=== PATIENT | male | born 1990 | race Caucasian/White ===

== ENCOUNTER 2016-10-10 12:48 | Emergency (ER) | payer MEDICAID, OTHER ==
[~2016-10-10] VITALS: Ht 175.3 cm; Wt 71.1 kg
[2016-10-10 12:59] VITALS: BP 113/100; PULSE 77; RESP 16; TEMP 98.9; O2SAT 100
[2016-10-10] MEDS ORDERED: LIDOCAINE 1%/EPINEPHrine 1:100,000 SOLN 20 ML VIAL INFIL ONE (13:15)
[2016-10-10] MEDS ORDERED: BACT800T5 PO (13:17)
--- NOTE | 2016-10-10 13:17 | PD ---
HPI Chief Complaint: Skin Problem Time Seen by Provider: 12:55 Travel History International Travel<30 days: No Contact w/Intl Traveler<30days: No Traveled to known affect area: No History of Present Illness HPI 26-year-old male presents to the emergency room for evaluation of abscess to his right upper neck region for the past few days. Patient states it started off as a small pimple and he tried to squeeze and it grew in size. He reports minimal pain. Denies fever, chills, nausea, vomiting, and drainage. There is associated body aches. No chronic medical conditions or daily medications. Tetanus is up-to-date. PFSH Past Medical History Anxiety: Yes Depression: Yes Heart Rhythm Problems: Yes (murmur) Cancer: No Diabetes: No Diminished Hearing: Yes Psychiatric: Yes (bipolar disorder) Seizures: No Thyroid Disease: No Ulcer: No Influenza Vaccination: No Past Surgical History Other Surgery: Yes (DOUBLE HERNIA, PYLORIC STENOSIS) Social History Alcohol Use: No (PT DENIES) Tobacco Use: Yes (1 / ppd) Substance Use: Yes (IV Dilaudid, marijuana) Allergies-Medications (Allergen,Severity, Reaction): Coded Allergies: Penicillin (Verified Allergy, Severe, Hives, 07/22/16) Reported Meds & Prescriptions Reported Meds & Active Scripts Active Bactrim DS (Sulfamethoxazole-Trimethoprim) 800-160 Mg Tab 1 Tab PO BID Review of Systems Except as stated in HPI: all other systems reviewed are Neg Physical Exam Narrative GENERAL: Well-nourished, well-developed male in no acute distress. Afebrile. Ambulatory. SKIN: Focused skin assessment warm/dry. There is an indurated area in the right upper neck which measures about 1 cm in diameter. It is fluctuant but there is no pointing or drainage. There is a zone of inflammation around it but no lymphangitis. HEAD: Normocephalic. EYES: No scleral icterus. No injection or drainage. NECK: Supple, trachea midline. No JVD or lymphadenopathy. CARDIOVASCULAR: Regular rate and rhythm without murmurs, gallops, or rubs. RESPIRATORY: Breath sounds equal bilaterally. No accessory muscle use. PSYCHIATRIC: No delusional thought processes. No hallucinations. Data Data Last Documented VS Vital Signs Date Time Temp Pulse Resp B/P Pulse Ox O2 Delivery O2 Flow Rate FiO2 10/10/16 12:59 98.9 77 16 113/100 100 Orders Lidocai-Epi 1%-1:100,000 Inj (Xylocaine- (10/10/16 13:15) MDM Medical Decision Making Medical Screen Exam Complete: Yes Emergency Medical Condition: Yes Medical Record Reviewed: Yes Differential Diagnosis Abscess, folliculitis, acne Narrative Course 26-year-old male presents to the emergency room for evaluation of an abscess to his right upper neck for the past few days. Patient denies spontaneous drainage , systemic signs of infection, lymphangitis. Physical exam reveals a 1-2 cm area of induration without surrounding erythema. Abscess was drained, see procedure for details. Patient discharged with prescription for Bactrim and told to follow-up with a PCP or return for worsening symptoms. He understands and agrees to plan. Procedures Procedure Narrative INCISION AND DRAINAGE OF ABSCESS: The area was prepped and was sterilely draped. A subcutaneous wheal of 1% lidocaine with epinephrine with a total number 2 mL was used to anesthetize the area properly. A number 11 scalpel was used to make a 1 cm incision across the area of the abscess. The abscess was drained, complex loculations were broken down, and irrigated with normal saline. Cultures were obtained. Sterile dressing applied. Diagnosis Primary Impression: Abscess Referrals: Primary Care Physician Patient Instructions: Abscess (ED), General Instructions Additional Instructions: Rest and drink plenty of fluids. Take Bactrim as directed, until gone. Follow up with a primary care physician. Return to emergency room for worsening symptoms, as discussed. Med/Other Pt SpecificInfo: Prescription(s) given Scripts Sulfamethoxazole-Trimethoprim (Bactrim DS)800-160 Mg Tab1 Tab PO BID #20 TAB Ref 0 Prov:Saleem Hernandez MD 10/10/16 Disposition: 01 DISCHARGE HOME Condition: Stable Jahaira Nick Oct 10, 2016 13:17
== END 2016-10-10 13:55 | disposition home or self-care (01) ==
LOC: PHEFT 12:48
DX: L02.11 Cutaneous abscess of neck (principal)
CPT/HCPCS: 10060

== ENCOUNTER 2016-10-13 19:09 | Emergency (ER) | payer MEDICAID, OTHER ==
[~2016-10-13] VITALS: Ht 175.3 cm; Wt 68.0 kg
[~2016-10-13 19:09] MED LIST: BACT800T5 PO
[2016-10-13 19:19] VITALS: BP 139/85; PULSE 83; RESP 18; TEMP 98.3; O2SAT 98
[2016-10-13] MEDS ORDERED: CLIN1CAP6 PO (19:56)
[2016-10-13 19:57] VITALS: BP 139/85; PULSE 83; RESP 18; TEMP 98.3; O2SAT 98
--- NOTE | 2016-10-13 19:57 | PD ---
HPI Chief Complaint: Lump, Cyst, Hernia Time Seen by Provider: 19:51 Travel History International Travel<30 days: No Contact w/Intl Traveler<30days: No Traveled to known affect area: No History of Present Illness HPI HAS RIGHT SIDED LUMP THAT WAS I&D ON OCT 10 AND PLACED ON BACTRIM....RETURNS BECAUSE IS NOT IMPROVING, PER MOTHER APPARENTLY SISTER HAD SIMILAR LUMP AND HAD TO BE SWITCHED TO CLINDAMYCIN FROM BACTRIM. PATIENT STATES THERE IS SOME DRAINAGE FROM IT AND THAT IT HAS WORSENED MINIMALLY BUT THAT HE LEARNED HIS LESSON FROM SEEING HIS SISTERS JAW GET REALLY SWOLLEN. PFSH Past Medical History Anxiety: Yes Depression: Yes Heart Rhythm Problems: Yes (murmur) Cancer: No Diabetes: No Diminished Hearing: Yes Psychiatric: Yes (bipolar disorder) Seizures: No Thyroid Disease: No Ulcer: No ?: Not Past Surgical History Other Surgery: Yes (DOUBLE HERNIA, PYLORIC STENOSIS) Social History Alcohol Use: No (PT DENIES) Tobacco Use: Yes (03/11 ppd) Substance Use: Yes (IV Dilaudid, marijuana) Allergies-Medications (Allergen,Severity, Reaction): Coded Allergies: Penicillin (Verified Allergy, Severe, Hives, 07/22/16) Reported Meds & Prescriptions Reported Meds & Active Scripts Active Bactrim DS (Sulfamethoxazole-Trimethoprim) 800-160 Mg Tab 1 Tab PO BID Review of Systems Except as stated in HPI: all other systems reviewed are Neg Skin: Positive Lumps Physical Exam Narrative GENERAL: SKIN: Warm and dry....AREA AT ANGLE OF JAW ON RIGHT HAS AN ERYTHEMATOUS AREA OF 2.5CM, AND AN OPENED OOZING I&D WITHOUT ANY PACKING HEAD: Atraumatic. Normocephalic. EYES: Pupils equal and round. No scleral icterus. No injection or drainage. ENT: No nasal bleeding or discharge. Mucous membranes pink and moist. NECK: Trachea midline. No JVD. CARDIOVASCULAR: Regular rate and rhythm. RESPIRATORY: No accessory muscle use. Clear to auscultation. Breath sounds equal bilaterally. GASTROINTESTINAL: Abdomen soft, non-tender, nondistended. Hepatic and splenic margins not palpable. MUSCULOSKELETAL: Extremities without clubbing, cyanosis, or edema. No obvious deformities. NEUROLOGICAL: Awake and alert. No obvious cranial nerve deficits. Motor grossly within normal limits. Five out of 5 muscle strength in the arms and legs. Normal speech. PSYCHIATRIC: Appropriate mood and affect; insight and judgment normal. Data Data Last Documented VS Vital Signs Date Time Temp Pulse Resp B/P Pulse Ox O2 Delivery O2 Flow Rate FiO2 10/13/16 19:19 98.3 83 18 139/85 98 MDM Medical Decision Making Medical Screen Exam Complete: Yes Emergency Medical Condition: Yes Medical Record Reviewed: Yes Differential Diagnosis SUSPECT MRSA WITH POSSIBLE INSENSITIVITY TO BACTRIM Narrative Course WILL CULTURE AND SEND WELL ADD CLINDAMYCIN IM Diagnosis Primary Impression: Abscess Scripts Clindamycin 300 Mg [id number] Mg PO TID 10 Days Ref 0 Prov:Saleem Hernandez MD 10/13/16 Disposition: DISCHARGE HOME Condition: Stable Saleem Hernandez MD Oct 13, 2016 19:57
[2016-10-13] MEDS ORDERED: CLINDAMYCIN INJ 900 MG in SODIUM CHLORIDE 0.9% INJ 100 ML IV ONE (20:00)
[2016-10-13 21:22] VITALS: BP 145/75; PULSE 86; RESP 18; O2SAT 99
== END 2016-10-13 21:25 | disposition home or self-care (01) ==
LOC: PHED 19:09
DX: L02.11 Cutaneous abscess of neck (principal); B95.62 Methicillin resistant Staphylococcus aureus infection as the cause of diseases classified elsewhere; F17.210 Nicotine dependence, cigarettes, uncomplicated; F12.90 Cannabis use, unspecified, uncomplicated; F15.90 Other stimulant use, unspecified, uncomplicated; Z88.0 Allergy status to penicillin
CPT/HCPCS: 86403; 87070; 87186; 87205; 99283

== ENCOUNTER 2017-02-08 11:10 | Emergency (ER) | payer OTHER ==
[~2017-02-08 11:10] MED LIST changes: +CLIN300C5 PO
[2017-02-08 11:23] VITALS: BP 163/103; PULSE 80; RESP 20; TEMP 98.2; O2SAT 100
[2017-02-08] MEDS ORDERED: CLIN150C14 PO (12:27)
[2017-02-08] MEDS ORDERED: IBUP-232 PO (12:27)
--- NOTE | 2017-02-08 12:27 | PD ---
HPI Chief Complaint: ENT Complaint Time Seen by Provider: 12:13 Travel History International Travel<30 days: No Contact w/Intl Traveler<30days: No Traveled to known affect area: No History of Present Illness HPI 26-year-old male complains of left-sided facial pain and swelling. Patient states that the symptoms started yesterday. Patient states the pain is severe sharp pain localized left side of face and behind the left eye. Patient denies any pain radiation. Patient denies any any visual change. Patient states that he vomited this morning. Patient denies any fever chills. Patient denies any neck pain. Patient has history of illicit drug abuse in the past but not recently. Patient denies any recent facial injury. On a scale of 1-10 the pain is a 10. PFSH Past Medical History Anxiety: Yes Depression: Yes Heart Rhythm Problems: Yes (murmur) Cancer: No Diabetes: No Diminished Hearing: Yes Psychiatric: Yes (bipolar disorder) Immunizations Current: Yes Seizures: No Thyroid Disease: No Ulcer: No Influenza Vaccination: No Past Surgical History Ear Surgery: Yes Other Surgery: Yes (DOUBLE HERNIA, PYLORIC STENOSIS) Social History Alcohol Use: Yes (OCC) Tobacco Use: Yes (03/11 ppd) Substance Use: Yes (IV Dilaudid, marijuana) Allergies-Medications (Allergen,Severity, Reaction): Coded Allergies: penicillin G (Unverified Allergy, Severe, Hives, 02/08/17) *MDRO Multi-Drug Resistant Organism (Verified Adverse Reaction, Unknown, 02/08/17) MRSA (face)-10/13/16 Reported Meds & Prescriptions Reported Meds & Active Scripts Active Review of Systems General / Constitutional: No: Fever Eyes: No: Visual changes HENT: No: Headaches Cardiovascular: No: Chest Pain or Discomfort Respiratory: No: Shortness of Breath Gastrointestinal: No: Abdominal Pain Genitourinary: No: Dysuria Musculoskeletal: No: Pain Skin: No Rash Neurologic: No: Weakness Psychiatric: No: Depression Endocrine: No: Polydipsia Hematologic/Lymphatic: No: Easy Bruising Physical Exam Narrative GENERAL: Well-nourished, well-developed patient. SKIN: Focused skin assessment warm/dry. HEAD: Normocephalic. EYES: No scleral icterus. No injection or drainage. Pupils 2 mm equal reactive. Extraocular muscles intact. NECK: Supple, trachea midline. No JVD or lymphadenopathy. CARDIOVASCULAR: Regular rate and rhythm without murmurs, gallops, or rubs. RESPIRATORY: Breath sounds equal bilaterally. No accessory muscle use. GASTROINTESTINAL: Abdomen soft, non-tender, nondistended. MUSCULOSKELETAL: No cyanosis, or edema. BACK: Nontender without obvious deformity. No CVA tenderness. Patient had severe dental caries left upper gum with tenderness on palpation the left upper gum. Mild soft tissue swelling left cheek area with tenderness on palpation. Data Data Last Documented VS Vital Signs Date Time Temp Pulse Resp B/P (MAP) Pulse Ox O2 Delivery O2 Flow Rate FiO2 02/08/17 11:23 98.2 80 20 163/103 (123) 100 Orders Orders Clindamycin Inj (Cleocin Inj) (02/08/17 12:30) [facility] Medical Decision Making Medical Screen Exam Complete: Yes Emergency Medical Condition: Yes Differential Diagnosis Differential diagnosis including dental abscess, sinusitis, cellulitis. Narrative Course 26-year-old male with left-sided facial pain and swelling. Most likely dental abscess with sinusitis. Clindamycin 600 mg IM. Diagnosis Primary Impression: Dental abscess Additional Impression: Sinusitis Qualified Codes: J01.00 - Acute maxillary sinusitis, unspecified Patient Instructions: General Instructions Additional Instructions: Clindamycin as directed. Follow-up with her dentist. Return if worse. Med/Other Pt SpecificInfo: Prescription(s) given Scripts Ibuprofen (Ibuprofen) 600 Mg Tab 600 MG PO TID for Pain, #60 TAB 0 Refills Prov: Mathew Hernandez MD 02/08/17 Clindamycin (Clindamycin) 150 Mg Cap 2 TAB PO QID for Infection, #80 CAP 0 Refills Prov: Mathew Hernandez MD 02/08/17 Disposition: 01 DISCHARGE HOME Condition: Stable Mathew Hernandez MD Feb 08, 2017 12:27
[2017-02-08] MEDS ORDERED: CLINDAMYCIN PHOS 600 MG/4 ML VIAL IM ONE (12:30)
[2017-02-08 12:41] VITALS: BP 126/79; PULSE 82; RESP 17; O2SAT 99
== END 2017-02-08 12:47 | disposition home or self-care (01) ==
LOC: PHED 11:10
DX: K04.7 Periapical abscess without sinus (principal); J01.00 Acute maxillary sinusitis, unspecified; F17.200 Nicotine dependence, unspecified, uncomplicated
CPT/HCPCS: 96372

== ENCOUNTER 2017-02-17 19:47 | Emergency (ER) | payer OTHER ==
[~2017-02-17] VITALS: Ht 175.3 cm; Wt 68.0 kg
[~2017-02-17 19:47] MED LIST changes: -BACT800T5 PO; +CLIN150C14 PO; -CLIN300C5 PO; +IBUP-232 PO
[2017-02-17 20:00] VITALS: BP 145/93; PULSE 94; RESP 16; TEMP 98.8; O2SAT 100
[2017-02-17] MEDS ORDERED: DOXY100C PO (20:29)
[2017-02-17] MEDS ORDERED: ROBA750T PO (20:29)
[2017-02-17] MEDS ORDERED: IBUP-232 PO (20:29)
--- NOTE | 2017-02-17 20:29 | PD ---
HPI Chief Complaint: Back/ Neck Pain or Injury Time Seen by Provider: 20:18 Travel History International Travel<30 days: No Contact w/Intl Traveler<30days: No Traveled to known affect area: No History of Present Illness HPI 26-year-old male complains of facial pain, bloody nasal discharge, his head and neck pain. Patient was seen in emergency room 9 days ago for dental pain. Patient was given prescription for clindamycin. Patient has been taking clindamycin as directed. Patient started having left sided facial pain and bloody discharge this morning. Patient denies any injury to the facial area. Patient complains of right-sided neck pain since this morning. Patient states that the pain cramping pain localized right-sided neck. Patient denies any pain radiation. Patient states that the pain is worse with movement of the neck. Patient denies any injury to the neck area. Patient denies any fever chills. Patient denies any chest pain or shortness of breath. Patient denies any focal weakness or numbness of extremity. PFSH Past Medical History Anxiety: Yes Depression: Yes Heart Rhythm Problems: Yes (murmur) Cancer: No Diabetes: No Diminished Hearing: Yes Psychiatric: Yes (bipolar disorder) Immunizations Current: Yes Seizures: No Thyroid Disease: No Ulcer: No ?: Not Past Surgical History Ear Surgery: Yes Other Surgery: Yes (DOUBLE HERNIA, PYLORIC STENOSIS) Social History Alcohol Use: Yes (OCC) Tobacco Use: Yes (1 03/11 ppd) Substance Use: Yes (IV Dilaudid, marijuana) Allergies-Medications (Allergen,Severity, Reaction): Coded Allergies: penicillin G (Verified Allergy, Severe, Hives, 02/17/17) *MDRO Multi-Drug Resistant Organism (Verified Adverse Reaction, Unknown, 02/17/17) MRSA (face)-10/13/16 Reported Meds & Prescriptions Reported Meds & Active Scripts Active Ibuprofen 600 Mg Tab 600 Mg PO TID Clindamycin (Clindamycin HCl) 150 Mg Cap 2 Tab PO QID Review of Systems General / Constitutional: No: Fever Eyes: No: Visual changes HENT: Positive: Neck Pain, No: Headaches Cardiovascular: No: Chest Pain or Discomfort Respiratory: No: Shortness of Breath Gastrointestinal: No: Abdominal Pain Genitourinary: No: Dysuria Musculoskeletal: No: Pain Skin: No Rash Neurologic: No: Weakness Psychiatric: No: Depression Endocrine: No: Polydipsia Hematologic/Lymphatic: No: Easy Bruising Physical Exam Narrative GENERAL: Well-nourished, well-developed patient. SKIN: Focused skin assessment warm/dry. HEAD: Normocephalic. EYES: No scleral icterus. No injection or drainage. Patient has mild to moderate tenderness on palpation left maxillary sinus area. NECK: Supple, trachea midline. No JVD or lymphadenopathy. Patient has mild tenderness on palpation right-sided paraspinal areas cervical spine along with the right shoulder pad area. No shoulder joint tenderness. No midline tenderness of the cervical spine. No meningismus. CARDIOVASCULAR: Regular rate and rhythm without murmurs, gallops, or rubs. RESPIRATORY: Breath sounds equal bilaterally. No accessory muscle use. GASTROINTESTINAL: Abdomen soft, non-tender, nondistended. MUSCULOSKELETAL: No cyanosis, or edema. BACK: Nontender without obvious deformity. No CVA tenderness. Data Data Last Documented VS Vital Signs Date Time Temp Pulse Resp B/P (MAP) Pulse Ox O2 Delivery O2 Flow Rate FiO2 02/17/17 20:00 98.8 94 16 145/93 (110) 100 MDM Medical Decision Making Medical Screen Exam Complete: Yes Emergency Medical Condition: Yes Differential Diagnosis Differential diagnosis including sinusitis, URI, muscle spasm. Narrative Course 26-year-old male with right-sided facial pain, bloody nasal discharge, right- sided neck pain. Patient is on clindamycin for dental pain. Diagnosis Primary Impression: Sinusitis Qualified Codes: J01.00 - Acute maxillary sinusitis, unspecified Additional Impression: Muscle spasms of neck Patient Instructions: General Instructions Med/Other Pt SpecificInfo: Prescription(s) given Scripts Doxycycline Hyclate (Doxycycline Hyclate) 100 Mg Cap 100 MG PO BID for Infection, #20 CAP 0 Refills Prov: Mathew Hernandez MD 02/17/17 Methocarbamol (Robaxin) 750 Mg Tab 750 MG PO QID for Muscle Spasm, #40 TAB 0 Refills Prov: Mathew Hernandez MD 02/17/17 Ibuprofen (Ibuprofen) 600 Mg Tab 600 MG PO TID for Pain, #60 TAB 0 Refills Prov: Mathew Hernandez MD 02/17/17 Disposition: 01 DISCHARGE HOME Condition: Stable Mathew Hernandez MD Feb 17, 2017 20:29
== END 2017-02-17 20:42 | disposition home or self-care (01) ==
LOC: PHEFT 19:47
DX: J01.00 Acute maxillary sinusitis, unspecified (principal); M62.838 Other muscle spasm; M54.2 Cervicalgia; F17.200 Nicotine dependence, unspecified, uncomplicated
CPT/HCPCS: 99284

== ENCOUNTER 2017-03-08 16:28 | Emergency (ER) | payer OTHER ==
[~2017-03-08] VITALS: Ht 175.3 cm; Wt 63.0 kg
[~2017-03-08 16:28] MED LIST changes: +DOXY100C PO; +ROBA750T PO
[2017-03-08 16:31] VITALS: BP 154/83; PULSE 67; RESP 16; TEMP 97.7; O2SAT 100
[2017-03-08] MEDS ORDERED: TETANUS/DIPHTHERIA TOXOID ADULT 0.5 ML VIAL IM ONE (17:00)
--- NOTE | 2017-03-08 17:09 | PD ---
HPI Chief Complaint: Laceration/Skin Injury Time Seen by Provider: 17:26 Travel History International Travel<30 days: No Contact w/Intl Traveler<30days: No Traveled to known affect area: No History of Present Illness HPI 26-year-old male presents to emergency department with an avulsion to the distal aspects of middle finger. 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 States he went to urgent care and they recommended he come to the emergency department as he may require a hand specialist. States they did not perform an x-ray. States his pain is moderate and stinging. He does not know when his last tetanus vaccination was. Patient states he has normal sensation to the surrounding tissue. Has full range of motion of his finger. Patient is right-handed [facility] Past Medical History Anxiety: Yes Depression: Yes Heart Rhythm Problems: Yes (murmur) Diabetes: No Diminished Hearing: Yes Hypertension: Yes Psychiatric: Yes (bipolar disorder) Immunizations Current: Yes Seizures: No Tetanus Vaccination: > 5 Years Influenza Vaccination: No Past Surgical History Ear Surgery: Yes Other Surgery: Yes (DOUBLE HERNIA, PYLORIC STENOSIS) Social History Alcohol Use: Yes (OCC) Tobacco Use: Yes (1 ppd) Substance Use: Yes (IV Dilaudid, marijuana) Allergies-Medications (Allergen,Severity, Reaction): Coded Allergies: penicillin G (Verified Allergy, Severe, Hives, 03/08/17) *MDRO Multi-Drug Resistant Organism (Verified Adverse Reaction, Unknown, 02/17/17) MRSA (face)-10/13/16 Reported Meds & Prescriptions Reported Meds & Active Scripts Active Review of Systems Except as stated in HPI: all other systems reviewed are Neg Physical Exam Narrative GENERAL: Well-nourished, well-developed patient. SKIN: Focused skin assessment warm/dry. HEAD: Normocephalic. EYES: No scleral icterus. No injection or drainage. NECK: Supple, trachea midline. No JVD or lymphadenopathy. CARDIOVASCULAR: Regular rate and rhythm without murmurs, gallops, or rubs. RESPIRATORY: Breath sounds equal bilaterally. No accessory muscle use. MUSCULOSKELETAL: No cyanosis, or edema. Right middle finger- 1 cm oval shaped avulsion to the distal lateral finger pad not including the nail or deep structures. Bleeding controlled, no significant edema. BACK: Nontender without obvious deformity. No CVA tenderness. Data Data Last Documented VS Vital Signs Date Time Temp Pulse Resp B/P (MAP) Pulse Ox O2 Delivery O2 Flow Rate FiO2 03/08/17 16:31 97.7 67 16 154/83 (106) 100 Orders Orders Tetanus/Diphtheria Tox Adult (Tetanus/Di (03/08/17 17:00) Lidocaine Pf 1% Inj (Xylocaine-Mpf 1% In (03/08/17 17:30) Finger ([id number]) (03/08/17 ) Ed Discharge Order (03/08/17 18:20) MDM Medical Decision Making Medical Screen Exam Complete: Yes Emergency Medical Condition: Yes Differential Diagnosis Right middle finger avulsion, laceration, abrasion Narrative Course 26-year-old male presents to emergency department with an avulsion to the distal aspects of middle finger. 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 States he went to urgent care and they recommended he come to the emergency department as he may require a hand specialist. States they did not perform an x-ray. States his pain is moderate and stinging. He does not know when his last tetanus vaccination was. Patient states he has normal sensation to the surrounding tissue. Has full range of motion of his finger. Patient is right-handed Vital signs stable. Physical exam is consistent with an avulsion to the distal aspect of finger. There is no evidence of tendon or ligament involvement. No evidence of nail involvement. Bleeding is well-controlled. X-ray obtained to rule out possibility of bone involvement. Area was cleaned thoroughly with iodine and irrigated with saline. Advised on wound care. Advised to watch for signs of infection. Advised follow-up with primary care physician for wound checks. Return to emergency room for worsening or persistent symptoms. Procedures Procedure Narrative Digital block performed to reduce patient's symptoms, MCP approach. 1% lidocaine without epinephrine used to anesthetize the finger. Diagnosis Primary Impression: Avulsion, finger tip Qualified Codes: S61.209A - Unspecified open wound of unspecified finger without damage to nail, initial encounter Referrals: Primary Care Physician Departure Forms: Tests/Procedures, Work Release Enter return to work date: Mar 10, 2017 Additional Instructions: Follow-up department care physician within 2-3 days. Consider follow-up with a hand specialist if no improvement in a couple of days. Keep area clean and dry for 24 hours You may use [id number] triple antibiotic ointments for your injury after 24-48 hours Change dressings daily. If bleeding starts again, applied pressure and elevate the area. If he developed increased redness, swelling, or pain return to the emergency department. Disposition: 01 DISCHARGE HOME Condition: Stable Eleni Miranda Mar 08, 2017 17:09
[2017-03-08] MEDS ORDERED: LIDOCAINE HCL 1% 20 ML VIAL INFIL ONE (17:15)
[2017-03-08] MEDS ORDERED: LIDOCAINE HCL 1% PF 30 ML VIAL INFIL ONE (17:30)
--- NOTE | 2017-03-08 18:14 | RADRPT ---
EXAM DATE/TIME: 03/08/2017 17:47 [facility] COMPARISON: No previous studies available for comparison. 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 SURGICAL HISTORY : None. ENCOUNTER: Initial ACUITY: 1 day PAIN SCORE: 5/10 LOCATION: Right 3rd finger tip FINDINGS: No definite fractures, or dislocations are identified. No definite lytic or sclerotic lesion is seen . The joint spaces are well maintained. There is no evidence for a radiopaque foreign body for techn ique. CONCLUSION: Unremarkable study. Lydia Alvarado MD on March 08, 2017 at 18:11 Board Certified Radiologist. This report was verified electronically.
== END 2017-03-08 18:35 | disposition home or self-care (01) ==
LOC: PHEFT 16:28
DX: S61.312A Laceration without foreign body of right middle finger with damage to nail, initial encounter (principal); F41.9 Anxiety disorder, unspecified; I10 Essential (primary) hypertension; F31.9 Bipolar disorder, unspecified; F17.200 Nicotine dependence, unspecified, uncomplicated; W31.82XA Contact with other commercial machinery, initial encounter; Z88.0 Allergy status to penicillin; Z23 Encounter for immunization
CPT/HCPCS: 64450; 73140; 90471; 90714

== ENCOUNTER 2017-05-11 15:14 | Emergency (ER) | payer OTHER ==
[~2017-05-11] VITALS: Ht 172.7 cm; Wt 60.0 kg
[2017-05-11 16:52] VITALS: BP 167/94; PULSE 75; RESP 18; TEMP 98.7; O2SAT 99
[2017-05-11 17:05] VITALS: BP_SYST 134; BP_SYST 159; BP_DIAS 57; PULSE 88; RESP 16; TEMP 98; O2SAT 99
[2017-05-11 18:29] LABS: AUTOMATED NEUTROPHIL # 6.7 TH/MM3 (1.8-7.7); BASOPHIL % 0.4 % (0.0-2.0); EOSINOPHIL # 0.4 TH/MM3 (0-0.4); HEMOGLOBIN 16.3 GM/DL (13.0-17.0); LYMPH % 15.5 % (9.0-44.0); LYMPHOCYTE # 1.4 TH/MM3 (1.0-4.8); MEAN CELL VOLUME 84.7 FL (80.0-100.0); MEAN CORPUSCULAR HEMOGLOBIN 30.1 PG (27.0-34.0); MEAN CORPUSCULAR HGB CONC 35.5 % (32.0-36.0); MEAN PLATELET VOLUME 7.7 FL (7.0-11.0); MONO % 5.5 % (0.0-8.0); MONOCYTE # 0.5 TH/MM3 (0-0.9); NEUT % 74.6 % (16.0-70.0); PLATELET COUNT 229 TH/MM3 (150-450); RED BLOOD COUNT 5.43 MIL/MM3 (4.50-5.90); RED CELL DISTRIBUTION WIDTH 12.9 % (11.6-17.2); WHITE BLOOD COUNT 8.9 TH/MM3 (4.0-11.0)
[2017-05-11 18:38] LABS: ALT (GPT) 19 U/L (12-78); AST (GOT) 17 U/L (15-37); BICARBONATE 28.3 MEQ/L (21.0-32.0); BLOOD UREA NITROGEN 8 MG/DL (7-18); CALCIUM 9.1 MG/DL (8.5-10.1); CHLORIDE 106 MEQ/L (98-107); CREATININE 0.85 MG/DL (0.60-1.30); GLOMERULAR FILTRATION RATE 110 ML/MIN (>89); GLUCOSE,RANDOM 127 MG/DL (74-106); SODIUM (NA) 141 MEQ/L (136-145)
[2017-05-11 18:41] LABS: ALKALINE PHOSPHATASE 85 U/L (45-117); TOTAL BILIRUBIN ADULT 0.3 MG/DL (0.2-1.0); TOTAL PROTEIN 7.5 GM/DL (6.4-8.2)
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
[2017-05-11] MEDS ORDERED: diphenhydrAMINE HCL 50 MG CAP PO ONE (20:30)
[2017-05-11] MEDS ORDERED: IBUPROFEN 600 MG TAB PO ONE (20:30)
[2017-05-11 21:53] VITALS: BP 135/77; PULSE 67; RESP 18; TEMP 98.2; O2SAT 97
[2017-05-12 02:17] VITALS: BP 138/82; PULSE 60; RESP 18; TEMP 99.2; O2SAT 99
[2017-05-12 06:25] VITALS: BP 164/75; PULSE 95; RESP 18; TEMP 99.1; O2SAT 98
--- NOTE | 2017-05-12 08:18 | PD ---
Physical Exam Time Seen by Provider: 08:08 Narrative The patient is being discharged to the [facility] for continued care and evaluation. Data Data Last Documented VS Vital Signs Date Time Temp Pulse Resp B/P (MAP) Pulse Ox O2 Delivery O2 Flow Rate FiO2 05/12/17 06:25 99.1 95 18 164/75 (104) 98 Room Air Orders Orders Diet Regular Basic (05/11/17 Dinner) Complete Blood Count With Diff (05/11/17 16:02) Comprehensive Metabolic Panel (05/11/17 16:02) Psych Screen (05/11/17 16:02) Drug Screen, Random Urine (05/11/17 16:02) Alcohol (Ethanol) (05/11/17 16:02) Diphenhydramine (Benadryl) (05/11/17 20:30) Ibuprofen (Motrin) (05/11/17 20:30) Diet Regular Basic (05/12/17 Breakfast) Labs Laboratory Tests Test 05/11/17 16:00 05/11/17 17:45 Urine Opiates Screen NEG Urine Barbiturates Screen NEG Urine Amphetamines Screen NEG Urine Benzodiazepines Screen NEG Urine Cocaine Screen NEG Urine Cannabinoids Screen POS White Blood Count 8.9 TH/MM3 Red Blood Count 5.43 MIL/MM3 Hemoglobin 16.3 GM/DL Hematocrit 46.0 % Mean Corpuscular Volume 84.7 FL Mean Corpuscular Hemoglobin 30.1 PG Mean Corpuscular Hemoglobin Concent 35.5 % Red Cell Distribution Width 12.9 % Platelet Count 229 TH/MM3 Mean Platelet Volume 7.7 FL Neutrophils (%) (Auto) 74.6 % Lymphocytes (%) (Auto) 15.5 % Monocytes (%) (Auto) 5.5 % Eosinophils (%) (Auto) 4.0 % Basophils (%) (Auto) 0.4 % Neutrophils # (Auto) 6.7 TH/MM3 Lymphocytes # (Auto) 1.4 TH/MM3 Monocytes # (Auto) 0.5 TH/MM3 Eosinophils # (Auto) 0.4 TH/MM3 Basophils # (Auto) 0.0 TH/MM3 CBC Comment DIFF FINAL Differential Comment Blood Urea Nitrogen 8 MG/DL Creatinine 0.85 MG/DL Random Glucose 127 MG/DL Total Protein 7.5 GM/DL Albumin 4.0 GM/DL Calcium Level 9.1 MG/DL Alkaline Phosphatase 85 U/L Aspartate Amino Transf (AST/SGOT) 17 U/L Alanine Aminotransferase (ALT/SGPT) 19 U/L Total Bilirubin 0.3 MG/DL Sodium Level 141 MEQ/L Potassium Level 3.5 MEQ/L Chloride Level 106 MEQ/L Carbon Dioxide Level 28.3 MEQ/L Anion Gap 7 MEQ/L Estimat Glomerular Filtration Rate 110 ML/MIN Ethyl Alcohol Level LESS THAN 3 MG/DL MDM Supervised Visit with BELINDA: No Narrative Course The patient is being discharged to the [facility] for continued care and evaluation. Diagnosis Primary Impression: Self mutilative cutting Scripts No Active Prescriptions or Reported Meds Disposition: 65 DISC TO PSYCH CARE FACILITY Condition: Stable Isi Mclain May 12, 2017 08:18
== END 2017-05-12 10:30 ==
LOC: NEPJ 15:14
DX: S61.512A Laceration without foreign body of left wrist, initial encounter (principal); X78.1XXA Intentional self-harm by knife, initial encounter
CPT/HCPCS: 80053; 80307; 85025; 99285; Q0163

== ENCOUNTER 2017-05-29 09:33 | Emergency (ER) | payer OTHER ==
[~2017-05-29] VITALS: Ht 175.3 cm; Wt 67.0 kg
[2017-05-29 09:36] VITALS: BP 154/92; PULSE 77; RESP 16; TEMP 98; O2SAT 100
[2017-05-29] MEDS ORDERED: VIST25CA PO (09:58)
[2017-05-29] MEDS ORDERED: SERO300T PO (09:58)
[2017-05-29] MEDS ORDERED: ACETAMINOPHEN 325 MG TAB PO ONE (10:00)
[2017-05-29] MEDS ORDERED: predniSONE 50 MG TAB PO ONE (10:00)
[2017-05-29] MEDS ORDERED: guaiFENesin/CODEINE SYRUP 200 MG/20 MG/10 ML CUP PO ONE (10:00)
--- NOTE | 2017-05-29 10:04 | PD ---
HPI Chief Complaint: Cold / Flu Symptoms Time Seen by Provider: 09:48 Travel History International Travel<30 days: No Contact w/Intl Traveler<30days: No Traveled to known affect area: No History of Present Illness HPI 26yo M with PMH of anxiety, depression here with cold like symptoms. Pt complains of cough, nasal congestion, left ear fullness for a few days. Said he had throat pain but that went away. Denies any fever, chest pain, sob, n/v, abdominal pain, focal weakness or numbness. Pt is a cig smoker. Denies any IVDA. PFSH Past Medical History Bipolar Disorder: Yes Anxiety: Yes Depression: Yes Heart Rhythm Problems: Yes (murmur) Cancer: No Cardiovascular Problems: No Diabetes: No Diminished Hearing: Yes (right ear deaf) Hypertension: Yes Psychiatric: Yes (bipolar disorder) Immunizations Current: Yes Seizures: No Thyroid Disease: No Ulcer: No Tetanus Vaccination: < 5 Years Influenza Vaccination: No Past Surgical History Ear Surgery: Yes (tubes ) Tympanostomy Tube: Yes (bilat ears) Other Surgery: Yes (DOUBLE HERNIA, PYLORIC STENOSIS) Social History Alcohol Use: Yes (OCC) Tobacco Use: Yes (1 1/2 ppd cigs) Substance Use: No Allergies-Medications (Allergen,Severity, Reaction): Coded Allergies: penicillin G (Verified Allergy, Severe, Hives, 05/29/17) *MDRO Multi-Drug Resistant Organism (Verified Adverse Reaction, Unknown, ) MRSA (face)-10/13/16 Reported Meds & Prescriptions Reported Meds & Active Scripts Active Reported Vistaril (Hydroxyzine Pamoate) 25 Mg Cap 25 Mg PO TID PRN Seroquel (Quetiapine Fumarate) 300 Mg Tab 300 Mg PO HS Review of Systems Except as stated in HPI: all other systems reviewed are Neg Physical Exam Narrative GENERAL: 26yo M not in distress. SKIN: Focused skin assessment warm/dry. HEAD: Atraumatic. Normocephalic. EYES: Pupils equal and round. No scleral icterus. No injection or drainage. ENT: +Edema in bilateral nasal turbinates. No erythema or dullness in bilateral TM. Throat: Uvula midline. No erythema. No exudate. NECK: Trachea midline. No JVD. CARDIOVASCULAR: Regular rate and rhythm. No murmur appreciated. RESPIRATORY: No accessory muscle use. Coarse breath sounds bilaterally. GASTROINTESTINAL: Abdomen soft, non-tender, nondistended. MUSCULOSKELETAL: No obvious deformities. No clubbing. No cyanosis. No edema. NEUROLOGICAL: Awake and alert. No obvious cranial nerve deficits. Motor grossly within normal limits. Normal speech. Data Data Last Documented VS Vital Signs Date Time Temp Pulse Resp B/P (MAP) Pulse Ox O2 Delivery O2 Flow Rate FiO2 05/29/17 09:53 16 100 Room Air 05/29/17 09:36 98.0 77 154/92 (112) Orders Orders Chest, Single Ap (05/29/17 ) Guaifen-Cod 200-20 Mg/10ml Liq (Robituss (05/29/17 10:00) Albuterol-Ipratropium Neb (Duoneb Neb) (05/29/17 10:00) Prednisone (Deltasone) (05/29/17 10:00) Acetaminophen (Tylenol) (05/29/17 10:00) MDM Medical Decision Making Medical Screen Exam Complete: Yes Emergency Medical Condition: Yes Differential Diagnosis URI vs. bronchitis vs. pneumonia Narrative Course 26yo M with cold like symptoms for a few days. Pt has not taken any medications at home. He has coarse breath sounds bilaterally on lung exam and is a cig smoker. Will treat with duonebs, prednisone, acetaminophen and robitussin. Pt reevaluated after medication and feels much better. CXR showed small focus of reticular density in right lateral perihilar region. Pt is 26yo with no significant PMH. Saturating at 100% on RA so will do outpatient treatment first with azithromycin. Pt is a smoker and smoking cessation counselled. Denies any suicidal or homicidal ideations. There is prolong QT associated with combining his psych medication with azithromycin and pt said he can stop his psych medication for a few days. Return precautions given. Diagnosis Primary Impression: Pneumonia Qualified Codes: J18.9 - Pneumonia, unspecified organism Patient Instructions: General Instructions Departure Forms: Tests/Procedures Additional Instructions: Please follow up with your primary care physician in 2-3 days. Return to the ED if symptoms worsen. Med/Other Pt SpecificInfo: Prescription(s) given Scripts Prednisone (Deltasone) 20 Mg Tab 20 MG PO BID for 5 Days, #10 TAB 0 Refills Prov: Awilda Gaona DO 05/29/17 Albuterol 18 GM Inh (Ventolin Hfa 18 GM Inh) 90 Mcg/Act Aer 2 PUFF INH Q4H Y for SHORTNESS OF BREATH, #1 INHALER 0 Refills Prov: Awilda Gaona DO 05/29/17 Azithromycin (Zithromax Z-Reynaldo) 250 Mg Dspk 250 MG PO DIRECTED for Infection, #1 DSPK 0 Refills 500 MG (2 tabs) day 1, then 1 tab days 2-5. Prov: Awilda Gaona DO 05/29/17 Disposition: 01 DISCHARGE HOME Condition: Stable Awilda Gaona DO May 29, 2017 10:04
[2017-05-29] MEDS: RESP: ALBUTEROL 2.5 MG/IPRATROPIUM 0.5 MG NEB (SCH) INH (10:08)
--- NOTE | 2017-05-29 10:58 | RADRPT ---
EXAM DATE/TIME: 05/29/2017 10:12 [facility] COMPARISON: CHEST SINGLE AP, July 22, 2016, 12:00. INDICATIONS : Cough, short of breath. MEDICAL HISTORY : None. SURGICAL HISTORY : None. ENCOUNTER: Initial ACUITY: 4 - 6 days PAIN SCORE: 0/10 LOCATION: Bilateral chest FINDINGS: There is mild focal reticular parenchymal opacity in the right perihilar region, not clearly present previously and potentially small area of infiltrate. Lungs otherwise grossly clear. No pleural effusi on is evident. Cardiac contours are satisfactory and stable. CONCLUSION: Small focus of reticular density in the right lateral perihilar region Dhiraj Menchaca MD on May 29, 2017 at 10:53 Board Certified Radiologist. This report was verified electronically.
[2017-05-29] MEDS ORDERED: ZITHTAB PO (11:20)
[2017-05-29] MEDS ORDERED: PRED-503 PO (11:20)
[2017-05-29] MEDS ORDERED: VENTAER INH (11:20)
== END 2017-05-29 11:34 | disposition home or self-care (01) ==
LOC: PHED 09:33
DX: J18.9 Pneumonia, unspecified organism (principal); R09.81 Nasal congestion; H93.92 Unspecified disorder of left ear; I10 Essential (primary) hypertension; F41.8 Other specified anxiety disorders; F31.9 Bipolar disorder, unspecified; H91.91 Unspecified hearing loss, right ear; F17.200 Nicotine dependence, unspecified, uncomplicated; Z86.79 Personal history of other diseases of the circulatory system
CPT/HCPCS: 71045; 94640; 94664; 99283; J7512